=== PATIENT | female | born 1960 | race Caucasian/White ===

== ENCOUNTER → 2016-11-08 | Outpatient (CLI) | payer OTHER ==
[~2016-11-08] MED LIST: FENTANYL PF 100 MCG/2ML ONE; FLUMAZENIL 0.1 MG/1 ML, 5ML ONE; MIDAZOLAM 1 MG/ML, 5ML ONE; NALOXONE 1 MG/ML, 2ML ONE
== END | disposition home or self-care (01) ==
LOC: RAD 11:43
PROVIDERS: ATTEND Family Medicine
DX: M54.16 Radiculopathy, lumbar region (principal); M51.26 Other intervertebral disc displacement, lumbar region
CPT/HCPCS: 72148; J2250; J3010; J2310

== ENCOUNTER → 2018-08-26 | Outpatient (CLI) | payer OTHER ==
[~2018-08-26] VITALS: Ht 162.6 cm; Wt 144.0 kg
[~2018-08-26] MED LIST changes: -FLUMAZENIL 0.1 MG/1 ML, 5ML ONE; -NALOXONE 1 MG/ML, 2ML ONE
== END | disposition home or self-care (01) ==
LOC: RAD 12:20
PROVIDERS: ATTEND Emergency Medicine
DX: S43.432A Superior glenoid labrum lesion of left shoulder, initial encounter (principal); M94.212 Chondromalacia, left shoulder; M19.012 Primary osteoarthritis, left shoulder; M25.412 Effusion, left shoulder; M75.52 Bursitis of left shoulder; X58.XXXA Exposure to other specified factors, initial encounter; Y93.89 Activity, other specified; Y92.89 Other specified places as the place of occurrence of the external cause; Y99.8 Other external cause status
CPT/HCPCS: 73221; 99156; 99157; J1642; J2250; J3010

== ENCOUNTER 2018-08-28 08:41 | Day surgery (SDC) | payer OTHER ==
[~2018-08-28] VITALS: Ht 162.6 cm; Wt 144.0 kg
[2018-08-28] MEDS ORDERED: SODIUM CHLORIDE 0.9% 1,000 ML IV SCH (09:34)
[2018-08-28 09:36] VITALS: BP 176/82
[2018-08-28] MEDS ORDERED: EPHEDRINE 50 MG/ML, 1ML ONE (11:06)
[2018-08-28] MEDS ORDERED: ONDANSETRON 2MG/ML, 2ML ONE (11:06)
[2018-08-28] MEDS ORDERED: DEXAMETHASONE 4 MG/ML, 1ML ONE (11:06)
[2018-08-28] MEDS ORDERED: PROPOFOL 10 MG/ML, 20ML ONE (11:06)
[2018-08-28] MEDS ORDERED: SUCCINYLCHOLINE 20 MG/ML, 10ML ONE (11:06)
[2018-08-28] MEDS ORDERED: FENTANYL PF 100 MCG/2ML ONE (11:07)
== END 2018-08-28 14:50 | disposition home or self-care (01) ==
LOC: OUT 08:41 → EDSTATUS 11:00 → OUT 14:50
PROVIDERS: ATTEND Family Medicine
DX: M19.012 Primary osteoarthritis, left shoulder (principal); M75.52 Bursitis of left shoulder; M67.814 Other specified disorders of tendon, left shoulder; E11.9 Type 2 diabetes mellitus without complications; I10 Essential (primary) hypertension; Z79.84 Long term (current) use of oral hypoglycemic drugs
CPT/HCPCS: 73221; J0330; J1100; J2405; J2704; J3010

== ENCOUNTER → 2018-10-05 | Outpatient (CLI) | payer OTHER | END | disposition home or self-care (01) | LOC: CFH 08:30 | PROVIDERS: ATTEND Family Medicine | DX: Z12.31 Encounter for screening mammogram for malignant neoplasm of breast (principal) | CPT/HCPCS: 77067 ==

== ENCOUNTER → 2020-06-27 | Outpatient (CLI) | payer OTHER | END | disposition home or self-care (01) | LOC: CFH 12:23 | PROVIDERS: ATTEND Obstetrics & Gynecology | DX: N63.12 Unspecified lump in the right breast, upper inner quadrant (principal) | CPT/HCPCS: 76642; 77066; G0279 ==

== ENCOUNTER 2020-08-22 09:35 | Day surgery (SDC) | payer OTHER ==
[~2020-08-22] VITALS: Ht 162.6 cm; Wt 144.6 kg
[2020-08-22 10:09] VITALS: BP 149/93
[2020-08-22] MEDS ORDERED: CHLORHEXIDINE 15 ML UDC ONE (10:26)
[2020-08-22] MEDS ORDERED: PLEASE ENTER HEIGHT AND WEIGHT MC SCH (10:30)
[2020-08-22] MEDS ORDERED: LACTATED RINGERS 1,000 ML IV SCH (10:30)
[2020-08-22 10:31] LABS: BASOPHILS % (AUTO) 1 % (0-1); EOSINOPHILS % (AUTO) 1 % (1-7); LYMPHOCYTES % (AUTO) 22 % (22-44); MEAN CORPUSCULAR HEMOGLOBIN 29.5 pg (27.0-34.8); MEAN CORPUSCULAR HGB CONC 33.1 g/dL (32.4-35.8); MEAN PLATELET VOLUME 7.8 fL (7.4-10.4); MONOCYTES % (AUTO) 8 % (2-9); NEUTROPHILS % (AUTO) 69 % (42-75); PLATELET COUNT 299 x10^3/uL (130-400); RED CELL DISTRIBUTION WIDTH 14.2 % (9.6-15.2)
[2020-08-22] MEDS ORDERED: GABA600T7 PO (10:32)
[2020-08-22] MEDS ORDERED: HYDR10TA PO (10:32)
[2020-08-22] MEDS ORDERED: DOXE50CA PO (10:32)
[2020-08-22] MEDS ORDERED: METF500T17 PO (10:32)
[2020-08-22] MEDS ORDERED: LISI-167 PO (10:32)
[2020-08-22] MEDS ORDERED: METH-639 PO (10:32)
[2020-08-22] MEDS ORDERED: DOCU240C15 PO (10:32)
[2020-08-22] MEDS ORDERED: CHOL2400 PO (10:32)
[2020-08-22] MEDS ORDERED: OMEP-110 PO (10:32)
[2020-08-22] MEDS ORDERED: VENL100T PO (10:32)
[2020-08-22] MEDS ORDERED: PRAZ5CAP2 PO (10:32)
[2020-08-22] MEDS ORDERED: MICO14CR TP (10:32)
[2020-08-22] MEDS ORDERED: PITA4TAB2 PO (10:32)
[2020-08-22 10:41] LABS: ALANINE AMINOTRANSFERASE 23 U/L (12-78); ALBUMIN 3.7 g/dL (3.4-5.0); ANION GAP 6 mmol/L (5-15); CALCIUM 9.1 mg/dL (8.5-10.1); CHLORIDE 108 mmol/L (98-107); CREATININE 0.99 mg/dL (0.55-1.02)
[2020-08-22 10:44] LABS: ALKALINE PHOSPHATASE 103 U/L (45-117); BILIRUBIN,TOTAL 0.3 mg/dL (0.2-1.0); TOTAL PROTEIN 8.1 g/dL (6.4-8.2)
[2020-08-22 10:59] LABS: MD SCAN
[2020-08-22] MEDS ORDERED: PROPOFOL 10 MG/ML, 20ML ONE (11:03)
[2020-08-22] MEDS ORDERED: ROCURONIUM 10 MG/ML,10ML ONE (11:03)
[2020-08-22] MEDS ORDERED: SUGAMMADEX 200 MG/2 ML IVPush ONE (11:03)
[2020-08-22] MEDS ORDERED: ONDANSETRON 2MG/ML, 2ML ONE (11:03)
[2020-08-22] MEDS ORDERED: DEXAMETHASONE 4 MG/ML, 1ML ONE (11:03)
[2020-08-22] MEDS ORDERED: FENTANYL PF 100 MCG/2ML ONE (11:04)
[2020-08-22] MEDS ORDERED: EPHEDRINE 50 MG/ML, 1ML IVPush PRN (12:30)
[2020-08-22] MEDS ORDERED: DIPHENHYDRAMINE 50 MG/ML, 1ML IVPush PRN (12:30)
[2020-08-22] MEDS ORDERED: hydrALAzine 20 MG/ML, 1ML IV PRN (12:30)
[2020-08-22] MEDS ORDERED: LABETALOL 5MG/ML, 20ML IV PRN (12:30)
[2020-08-22] MEDS ORDERED: FENTANYL PF 100 MCG/2ML IV PRN (12:30)
[2020-08-22] MEDS ORDERED: HYDROmorphone 1 MG/ML, 1ML INJ IVPush PRN (12:30)
[2020-08-22] MEDS ORDERED: ONDANSETRON 2MG/ML, 2ML IVPush PRN (12:30)
[2020-08-22] MEDS ORDERED: DIAZEPAM 5 MG/ML, 2ML IVPush PRN (12:30)
[2020-08-22] MEDS ORDERED: OXYcodone 5 MG/5 ML ORAL.SOL UDC PO PRN (12:30)
[2020-08-22] MEDS ORDERED: PROMETHAZINE 25 MG/ML, 1ML IVPush PRN (12:30)
[2020-08-22] MEDS ORDERED: MEPERIDINE/PF 25MG/0.5ML IVPush PRN (12:30)
[2020-08-22] MEDS ORDERED: PROMETHAZINE 12.5 MG SUPP PR PRN (12:30)
[2020-08-22] MEDS ORDERED: ALBUTEROL SULFATE 2.5 MG/3 ML NPPB PRN (12:30)
[2020-08-22] MEDS ORDERED: MIDAZOLAM 1 MG/ML, 2ML IV PRN (12:30)
[2020-08-22] MEDS ORDERED: ACETAMINOPHEN 325 MG TABLET ONE (12:33)
[2020-08-22] MEDS ORDERED: OXYcodone 5 MG/5 ML ORAL.SOL UDC ONE (12:34)
[2020-08-22] MEDS ORDERED: ACETAMINOPHEN 325 MG TABLET PO PRN (13:00)
== END 2020-08-22 14:00 | disposition home or self-care (01) ==
LOC: OUT 09:35 → EDSTATUS 12:45 → OUT 14:00
PROVIDERS: ATTEND Radiology Diagnostic Radiology
DX: M25.512 Pain in left shoulder (principal); S43.432A Superior glenoid labrum lesion of left shoulder, initial encounter; M19.012 Primary osteoarthritis, left shoulder; M75.52 Bursitis of left shoulder; I10 Essential (primary) hypertension; E78.5 Hyperlipidemia, unspecified; E11.9 Type 2 diabetes mellitus without complications; G35 Multiple sclerosis; E66.01 Morbid (severe) obesity due to excess calories; Z68.43 Body mass index [BMI] 50.0-59.9, adult; Z79.84 Long term (current) use of oral hypoglycemic drugs; Z79.899 Other long term (current) drug therapy; X58.XXXA Exposure to other specified factors, initial encounter; Y93.89 Activity, other specified; Y92.89 Other specified places as the place of occurrence of the external cause; Y99.8 Other external cause status
CPT/HCPCS: 36415; 73221; 80053; 85025; 93005; J1100; J2405; J2704; J3010; J7120; 87635

== ENCOUNTER 2021-03-23 07:23 | Day surgery (SDC) | payer OTHER ==
[~2021-03-23] VITALS: Ht 162.6 cm; Wt 145.8 kg
[~2021-03-23 07:23] MED LIST changes: +CHOL2400 PO; +DOCU240C15 PO; +DOXE50CA PO; -FENTANYL PF 100 MCG/2ML ONE; +GABA600T7 PO; +HYDR10TA PO; +LISI-167 PO; +METF500T17 PO; +METH-639 PO; +MICO14CR3 TP; -MIDAZOLAM 1 MG/ML, 5ML ONE; +OMEP-110 PO; +PITA4TAB2 PO; +PRAZ5CAP2 PO; +VENL100T PO
[2021-03-23 08:14] VITALS: BP 147/87
[2021-03-23] MEDS ORDERED: LACTATED RINGERS 1,000 ML IV SCH (08:30)
[2021-03-23] MEDS ORDERED: CHLORHEXIDINE 15 ML UDC PO ONE (08:30)
[2021-03-23] MEDS ORDERED: DILT-86 PO (08:36)
[2021-03-23] MEDS ORDERED: hydrALAzine 20 MG/ML, 1ML IV PRN (09:00)
[2021-03-23] MEDS ORDERED: DIPHENHYDRAMINE 50 MG/ML, 1ML IVPush PRN (09:00)
[2021-03-23] MEDS ORDERED: LABETALOL 5MG/ML, 20ML IV PRN (09:00)
[2021-03-23] MEDS ORDERED: HALOPERIDOL 5 MG/ML IV PRN (09:00)
[2021-03-23] MEDS ORDERED: PROMETHAZINE 25 MG/ML, 1ML IVPush PRN (09:00)
[2021-03-23] MEDS ORDERED: FENTANYL PF 100 MCG/2ML IV PRN (09:00)
[2021-03-23] MEDS ORDERED: ROCURONIUM 10 MG/ML,10ML ONE (09:34)
[2021-03-23] MEDS ORDERED: SUGAMMADEX 200 MG/2 ML IVPush ONE (09:34)
[2021-03-23] MEDS ORDERED: ONDANSETRON 2MG/ML, 2ML ONE (09:34)
[2021-03-23] MEDS ORDERED: PROPOFOL 10 MG/ML, 20ML ONE (09:34)
[2021-03-23] MEDS ORDERED: DEXAMETHASONE 4 MG/ML, 1ML ONE (09:34)
== END 2021-03-23 12:45 | disposition home or self-care (01) ==
LOC: OUT 07:23 → MRI 12:45
DX: M54.5 Low back pain (principal); M51.36 Other intervertebral disc degeneration, lumbar region; M25.70 Osteophyte, unspecified joint; I10 Essential (primary) hypertension; E11.9 Type 2 diabetes mellitus without complications; K21.9 Gastro-esophageal reflux disease without esophagitis; Z88.1 Allergy status to other antibiotic agents; Z88.8 Allergy status to other drugs, medicaments and biological substances; Z91.040 Latex allergy status; Z91.018 Allergy to other foods; Z88.7 Allergy status to serum and vaccine; Z79.899 Other long term (current) drug therapy; Z98.890 Other specified postprocedural states
CPT/HCPCS: 72148; 93005; J1100; J2405; J2704; J3010; J7120